=== PATIENT | male | born 1945 | race Caucasian/White ===

== ENCOUNTER 2024-10-12 05:53 | Day surgery (SDC) | payer OTHER ==
[2024-10-12] VITALS (9 sets, daily range): BP systolic 107–147; BP diastolic 56–85
[~2024-10-12] VITALS: Ht 172 cm; Wt 84.4 kg
[~2024-10-12 05:53] MED LIST: EUTHYROX88 MCG PO; FINA5 PO; FLONASE ALLERG9.9 M2 NS; LISI20 PO; OMEP20ER PO; TAMS.4ER PO; VITAMIN D310 MC4 PO; Vitamin B-12100 MCG PO
[2024-10-12] MEDS ORDERED: CeFAZolin Sodium 2,000 MG in NS 100 ML IV SCH (06:25)
[2024-10-12] MEDS ORDERED: Tranexamic Acid 100 ML IV SCH (06:34)
[2024-10-12] MEDS ORDERED: Ondansetron HCl 2 MG / ML 2ML Vial ONE (06:44)
[2024-10-12] MEDS ORDERED: Rocuronium Bromide 10 MG/ML 5ML Injection IV ONE ×2 (06:44→06:54)
[2024-10-12] MEDS ORDERED: Midazolam HCl 1MG / ML 2ML Vial ONE (06:44)
[2024-10-12] MEDS ORDERED: Dexamethasone Sod Phos 10 MG/ML 1ML VIAL ONE (06:44)
[2024-10-12] MEDS ORDERED: Phenylephrine HCl 100 MCG/ML-NS 10MLSYR (1MG/10ML) ONE ×2 (06:44→06:54)
[2024-10-12] MEDS ORDERED: FentaNYL Citrate 50 MCG/ML 2 ML Injection ONE ×2 (06:44→10:09)
[2024-10-12] MEDS ORDERED: Bupivacaine 0.5% HCl 5 MG/ML 30MLVIAL ONE (06:54)
[2024-10-12] MEDS ORDERED: EPINEPhrine HCl 1 MG / ML 30ML Vial ONE (07:19)
[2024-10-12] MEDS ORDERED: Bupivacaine 0.5% W/EPI 1:200000 SDV 30 ML Vial ONE (07:19)
--- NOTE | 2024-10-12 07:56 | NUR ---
History, Chart, Medications and Allergies reviewed before start of procedure. Patient up to Ambulate independently. Gait steady. Pre-Op teaching done. Pt verbalizes understanding. Patient confirms NPO status and agrees with scheduled surgery. Patient reports completing Chlorhexadine shower X2 prior to admission to hospital. Surgical site prepped with 2% Chlorhexidine cloth wipe. Patient States Post-Procedure ride home has been arranged.
[2024-10-12] MEDS ORDERED: ePHEDrine Sulfate 50 MG/ML 1ML Injection ONE (08:14)
[2024-10-12] MEDS ORDERED: Sugammadex Sodium 200 MG/2ML SDV (100 MG/ML) ONE (08:32)
--- NOTE | 2024-10-12 08:41 | NUR ---
10/12/24 0841 Jackie Bertrand NOTED: PTS [place]EDDING RING NOT ABLE TO REMOVE, MD AND ANESTHESIA PROVIDER AWARE, RING IS TAPED, PT EDUCATION PROVIDED
[2024-10-12] MEDS ORDERED: ePHEDrine Sulfate 50 MG/ML 1ML Injection IV PRN (09:55)
[2024-10-12] MEDS ORDERED: Ondansetron HCl 2 MG / ML 2ML Vial IV PRN (09:55)
[2024-10-12] MEDS ORDERED: FentaNYL Citrate 50 MCG/ML 2 ML Injection IV PRN ×2 (09:55)
[2024-10-12] MEDS ORDERED: HYDROmorphone HCl/Pf 1MG SYR IV PRN ×2 (09:55)
[2024-10-12] MEDS ORDERED: Albuterol 2.5 MG/3 ML VIAL INH PRN (10:00)
--- NOTE | 2024-10-12 12:03 | NUR ---
Discharge instructions reviewed with patient. Patient verbalizes understanding. Copy given to patient to take home. Prescription sent electronically. Polar pack provided. Shoulder sling in place. Some consern about ring and finger swelling, another attempt made to take it off, but unsuccessful. Pt felt comfortable discharing and being watchful of finger and seeking helf if needed. Patient States Post-Procedure ride home has been arranged. Discharged via wheelchair to private car for ride home.
== END 2024-10-12 12:20 | disposition home or self-care (01) ==
LOC: ORSCMMR 05:53 → ORD 07:30 → ORSCMMR 07:30
PROVIDERS: Orthopaedic Surgery Sports Medicine
PROC: 0RNK4ZZ Release Left Shoulder Joint, Percutaneous Endoscopic Approach (ICD-10-PCS; principal; 2024-10-12 07:30)
PROC: 0LM24ZZ Reattachment of Left Shoulder Tendon, Percutaneous Endoscopic Approach (ICD-10-PCS; principal; 2024-10-12 07:30)
DX: M75.102 Unspecified rotator cuff tear or rupture of left shoulder, not specified as traumatic (principal); M75.42 Impingement syndrome of left shoulder; I10 Essential (primary) hypertension; K21.9 Gastro-esophageal reflux disease without esophagitis; G47.33 Obstructive sleep apnea (adult) (pediatric); Z87.891 Personal history of nicotine dependence; E03.9 Hypothyroidism, unspecified; Z79.899 Other long term (current) drug therapy
CPT/HCPCS: C1713; J0165; J0690; J1100; J2250; J2371; J2405; J2704; J3010; J7120